=== PATIENT | female | born 1995 | race Caucasian/White ===

== ENCOUNTER 2020-06-17 16:44 | Outpatient (CLI) | payer OTHER ==
[2020-06-17 18:20] LABS: #Eosinphils 0.1 10x3/uL (0.0-0.5); #Monocytes 1.4 10x3/uL (0.0-1.1); #Neutrophils 8.6 10x3/uL (1.5-8.4); %Basophils 0.3 % (0.0-2.0); %Eosinophils 0.9 % (0.0-6.0); %Monocytes 9.8 % (0.0-10.0); %Neutrophils 60.6 % (40.0-75.0); Hemoglobin 15.4 g/dL (12.0-16.0); Mean Corpuscular HGB CONC 33.5 G/DL (32.0-36.0); Mean Corpuscular Volume 92.6 fl (80.0-100.0); Mean Platelet Volume 9.8 fl (7.4-10.4); Platelet Count 380 10x3/uL (130-400); RBC Distribution Width 12.4 % (11.5-14.5); Red Blood Cell (RBC) Count 4.97 10x6/uL (3.90-5.20); White Blood Cell (WBC) Count 14.2 10x3/uL (4.5-11.0)
[2020-06-17 18:36] LABS: ALT (SGPT) 26 U/L (8-55); AST (SGOT) 19 U/L (5-34); Albumin 4.6 g/dL (3.5-5.0); Alkaline Phosphatase 56 U/L (40-110); Anion Gap 16 mmol/L (10-20); BUN (Urea Nitrogen) 10 mg/dL (7.0-18.7); Bilirubin, Total 0.3 mg/dL (0.2-1.2); Calc. Creatinine Clearance 0 mL/min (70-130); Calcium 9.3 mg/dL (7.8-10.44); Carbon Dioxide 26 mmol/L (22-29); Chloride 104 mmol/L (98-107); Estimated GFR-MDRD 84; Glucose 82 mg/dL (70-105); Potassium 4.1 mmol/L (3.5-5.1); Protein, Total 7.6 g/dL (6.0-8.3); Sodium 142 mmol/L (136-145)
[2020-06-18 12:00] LABS: SARS-CoV-2 MS2 Positive; SARS-CoV-2 N Gene Negative; SARS-CoV-2 S Gene Negative; SARS-CoV-2 by NAA Not Detected (NotDetected); SARS-CoV-2 orf1ab Negative
== END 2020-06-17 16:45 | disposition home or self-care (01) ==
LOC: LABBT 16:44
PROVIDERS: ATTEND Surgery
DX: Z01.812 Encounter for preprocedural laboratory examination (principal); Z20.828 Contact with and (suspected) exposure to other viral communicable diseases; K44.9 Diaphragmatic hernia without obstruction or gangrene; K21.9 Gastro-esophageal reflux disease without esophagitis
CPT/HCPCS: 80053; 85025; 87635; U0003

== ENCOUNTER 2020-06-23 07:16 | Observation (INO) | payer OTHER ==
[2020-06-22 10:24] VITALS: BMI 25.3
[2020-06-23] MEDS ORDERED: Famotidine/PF 20 mg/2ml Vial ONE (08:08)
[2020-06-23] MEDS ORDERED: Midazolam HCl 2 mg/2 ml Vial ONE ×2 (08:09→09:10)
[2020-06-23] MEDS ORDERED: Lidocaine 1% PF 5 ML VIAL ONE (08:48)
[2020-06-23] MEDS ORDERED: Rocuronium Bromide 10 MG/ML (10ML VIAL) ONE (08:48)
[2020-06-23] MEDS ORDERED: PROPOFOL 200 MG/20 ML VIAL ONE (08:48)
[2020-06-23] MEDS ORDERED: Ondansetron PF 4 MG/2 ML Vial ONE (08:48)
[2020-06-23] MEDS ORDERED: Ketorolac Tromethamine 30 MG/ML VIAL ONE (08:48)
[2020-06-23] MEDS ORDERED: Naloxone HCl 0.4 mg/ml Vial ONE (08:48)
[2020-06-23] MEDS ORDERED: Lidocaine 1% w/Epinephrine 1:100K 20 ML VIAL ONE (09:01)
[2020-06-23] MEDS ORDERED: Bupivacaine 0.25% HCL 30 ML VIAL ONE (09:01)
[2020-06-23] MEDS ORDERED: Ketamine 50 MG/ML (10ML VIAL) ONE (09:11)
[2020-06-23] MEDS ORDERED: Propofol 1,000 MG/100 ML VIAL IV ONE (09:11)
[2020-06-23] MEDS ORDERED: Promethazine HCl 25 MG/ML VIAL SLOW IVP PRN (10:34)
[2020-06-23] MEDS ORDERED: Promethazine HCl 25 MG/ML VIAL IM PRN ×3 (10:34→12:00)
[2020-06-23] MEDS ORDERED: Ondansetron HCl/PF 4 MG/2 ML Vial IVP PRN (10:34)
[2020-06-23] MEDS ORDERED: diphenhydrAMINE 50 MG/ML VIAL IVP PRN (11:07)
[2020-06-23] MEDS ORDERED: hydrALAZINE 20 MG/ML VIAL SLOW IVP PRN (11:07)
[2020-06-23] MEDS ORDERED: Ondansetron PF 4 MG/2 ML Vial IVP PRN ×2 (11:07→12:00)
[2020-06-23] MEDS ORDERED: Dextrose 50% Abboject 50 ML SYRINGE SLOW IVP PRN (11:07)
[2020-06-23] MEDS ORDERED: Dextrose 5% in Water 1,000 ML IV PRN (11:07)
[2020-06-23] MEDS ORDERED: Hydrocodone-Acetamin 15 ML UDCUP PO PRN (11:07)
[2020-06-23] MEDS ORDERED: Sodium Chloride 0.9% (PF) 10 ML VIAL FS PRN (11:30)
[2020-06-23] MEDS ORDERED: Fentanyl 100 MCG/2 ML VIAL ONE (11:39)
[2020-06-23] MEDS ORDERED: Lorazepam 2 MG/ML VIAL ONE ×2 (11:57→16:01)
[2020-06-23] MEDS ORDERED: diphenhydrAMINE 50 MG/ML VIAL IM/IV PRN (12:00)
[2020-06-23] MEDS ORDERED: Zolpidem Tartrate 5 MG TAB PO PRN (12:00)
[2020-06-23] MEDS ORDERED: Naloxone HCl 0.4 mg/ml Vial IV PRN (12:00)
[2020-06-23] MEDS ORDERED: fentaNYL Citrate/PF 2,000 MCG in Sodium Chloride 0.9% 60 ML IV PRN (12:00)
[2020-06-23] MEDS ORDERED: diphenhydrAMINE 25 MG CAP PO PRN (12:00)
[2020-06-23] MEDS ORDERED: Meperidine HCl/PF 25 MG/ML VIAL ONE (12:03)
--- NOTE | 2020-06-23 12:40 | OP ---
DATE OF PROCEDURE: 06/23/2020 PREOPERATIVE DIAGNOSIS: Hiatal hernia with reflux. PROCEDURES PERFORMED: Laparoscopic hiatal hernia repair with Porsche fundoplication and esophagogastroscopy. INDICATIONS: A 25-year-old female who has been having severe gastroesophageal reflux. EGD showed esophagitis and a hiatal hernia. FINDINGS: Moderate-sized hiatal hernia. DESCRIPTION OF PROCEDURE: After informed consent was obtained, the patient was taken to the operating room and given general endotracheal anesthesia, placed in supine position. Abdomen was prepped and draped in usual fashion. Local anesthesia was infiltrated subcutaneously and deep. A 5-mm incision was performed approximately 8 inches below the xiphoid slight to the left. Veress needle inserted. Drop test performed. Pneumoperitoneum was created to a volume of 2 L of carbon dioxide. Utilizing a bladeless 5-mm trocar and 0-degree laparoscope, direct visual entry into the abdominal cavity was performed. Pneumoperitoneum was created to a pressure of 15 mmHg. The patient placed in steep reverse Trendelenburg position. Flores liver retractor inserted. Left lobe of the liver retracted superiorly. A 5 mm port was placed just to the left of the falciform, an 8 mm port placed in left subcostal, and another 5-mm port placed in left lateral. The stomach was retracted inferiorly. The gastrophrenic ligament divided utilizing the LigaSure. The peritoneum opened circumferentially with the LigaSure. Then, the short gastrics were taken down utilizing the LigaSure, left crura defined with the LigaSure. A subesophageal window was created and retraction achieved utilizing a Sterling drain. This allowed further dissection around the hiatus to fully reduce the hiatal hernia as well as esophagus. Then, a 40-Beninese bougie was inserted and directed into the body of stomach. A posterior crural plication was performed utilizing 0 Ethibond with the Sew-Right and Ti-KNOT device. Then, circumferentially the hiatal opening was closed onto the esophagus with interrupted 2-0 silk sutures tied intracorporeally. Then, the fundus was grasped underneath the esophagus, brought to the right side of the esophagus and a fundoplication was performed over the bougie. This was performed utilizing interrupted 2-0 silk sutures tied intracorporeally. Hemostasis was assured. Intraoperative endoscopy was performed. The video endoscope was inserted under direct vision, advanced into the stomach. Stomach insufflated with air maximally. There was no evidence of air leak. The scope was retroflexed. The scope inspected. There was no torsion, no paraesophageal component. The stomach decompressed. Scope removed. The trocars and retractors removed. The skin closed with interrupted 4-0 Rapide. Dermabond applied. The patient tolerated the procedure well and transferred to Recovery in good condition. Sponge and needle count verified correct x2. Job ID: [id number]
[2020-06-23] MEDS ORDERED: Lorazepam 2 MG/ML VIAL SLOW IVP PRN ×2 (15:09→15:44)
[2020-06-23] MEDS ORDERED: levETIRAcetam In NaCl (Iso-Os) 1,000 MG in Premix Bag 1 BAG IVPB SCH (15:15)
[2020-06-23 15:31] LABS: #Lymphocytes 0.8 thou/uL (1.20-3.40); #Monocytes 0.2 thou/uL (0.11-0.59); #Neutrophils 14.2 thou/uL (1.40-6.50); %Eosinophils 0.2 % (0.0-10.0); %Lymphocytes 5.3 % (21.0-51.0); %Monocytes 1.3 % (0.0-10.0); %Neutrophils 93.3 % (42.0-75.0); Hemoglobin 14.6 g/dL (12.0-16.0); Mean Corpuscular HGB CONC 35.2 g/dL (32.0-36.0); Mean Corpuscular Hemoglobin 32.6 pg (27.0-31.0); Mean Corpuscular Volume 92.6 fL (78.0-98.0); Mean Platelet Volume 6.9 fL (7.4-10.4); Platelet Count 291 thou/uL (130-400); RBC Distribution Width 11.3 % (11.5-14.5); Red Blood Cell (RBC) Count 4.48 mill/uL (4.20-5.40); White Blood Cell (WBC) Count 15.3 thou/uL (4.8-10.8)
[2020-06-23 15:48] LABS: Lactic Acid 1.3 mmol/L (0.5-2.2)
[2020-06-23 15:53] LABS: ALT (SGPT) 43 U/L (8-55); AST (SGOT) 37 U/L (5-34); Albumin 3.7 g/dL (3.5-5.0); Alkaline Phosphatase 52 U/L (40-110); Anion Gap 13 mmol/L (10-20); BUN (Urea Nitrogen) 9 mg/dL (7.0-18.7); Bilirubin, Total 0.3 mg/dL (0.2-1.2); Calc. Creatinine Clearance 139 mL/min (70-130); Calcium 8.8 mg/dL (7.8-10.44); Carbon Dioxide 20 mmol/L (22-29); Chloride 107 mmol/L (98-107); Estimated GFR-MDRD Greater than 90; Globulin 2.8 g/dL (2.4-3.5); Glucose 112 mg/dL (70-105); Potassium 4.2 mmol/L (3.5-5.1); Protein, Total 6.5 g/dL (6.0-8.3); Sodium 136 mmol/L (136-145)
--- NOTE | 2020-06-23 16:19 | CT ---
Head CT without contrast 06/23/2020: COMPARISON: 02/17/2013 HISTORY: Breakthrough seizure TECHNIQUE: Axial CT imaging at 5 mm intervals from vertex through skull base without contrast FINDINGS: The visualized paranasal sinuses and mastoid air cells appear well-aerated. No displaced ca lvarial fracture. No intracranial hemorrhage, midline shift, or mass effect. If there is clinical concern for a seizure focus, a follow-up brain MRI is recommended. IMPRESSION: No intracranial hemorrhage or displaced calvarial fracture.
[2020-06-23] MEDS: Ketorolac Tromethamine 30 MG/ML VIAL IVP SCH ×3 (16:43→23:27)
[2020-06-23] MEDS: D5 1/2 NS w/20 mEq KCL 1,000 ML IV SCH ×2 (17:08→20:36)
[2020-06-23] MEDS: CEFAZOLIN 2 GM in Premix Bag 1 BAG IVPB SCH ×2 (17:37→23:28)
[2020-06-23 19:48] LABS: Bilirubin Negative (Negative); Blood, Urine Negative (Negative); Glucose, Urine (Dipstick) Negative (Negative); Ketone, Urine Negative (Negative); Leukocyte Negative (Negative); Nitrite Negative (Negative); Protein, Urine (Dipstick) Negative (Neg-Trace); Urobilinogen 0.2 mg/dL (Less than 2); pH, Urine 5.5 (5.0-9.0)
[2020-06-23 19:49] LABS: Clarity Clear (Clear)
[2020-06-23 19:54] LABS: Bacteria/HPF 1+ HPF (None Seen); RBC/HPF None Seen HPF (0-3); Squamous Epithelial 0-3 HPF (0-3); WBC/HPF 0-3 HPF (0-3)
[2020-06-23 19:56] LABS: Urine Culture Reflex Yes Yes
[2020-06-23 19:59] LABS: Amphetamine Not Detected (NotDetected); Barbiturates Screen Not Detected (NotDetected); Benzodiazepine Screen Detected (NotDetected); Cocaine Metabolite Screen Not Detected (NotDetected); Medtox Control Line Valid? VALID (VALID); Medtox Reader # READER 1; Methadone Not Detected (NotDetected); Methamphetamine Not Detected (NotDetected); Opiate Screen Not Detected (NotDetected); Oxycodone Screen Not Detected (NotDetected); Phencyclidine (PCP) Not Detected (NotDetected); THC/Cannabinoid Screen Not Detected (NotDetected); Tricyclic Screen Not Detected (NotDetected)
--- NOTE | 2020-06-23 20:11 | PDOC.HHP ---
Hospitalist HPI - History of Present Illness Consult for seizures History of Present Illness: Ms. Lorenzana is a 25-year-old female with a past medical history of complex regional pain syndrome, hiatal hernia, GERD, seizure disorder who underwent a hiatal hernia repair with Porsche fundoplication on 06/23/[address] Gonsalez, and had 2 episodes of seizures while in the postanesthesia care unit. Nursing reports that seizures were generalized and tonic-clonic, lasting minutes. Patient received 2 mg of lorazepam. Patient mildly postictal afterwards but otherwise in no acute distress. Patient reports that she has a history of seizures with her last one occurring in March. She is not on any antiseizure medication, and does not follow with a neurologist. Patient denies any numbness, weakness or paresthesias. She denies any dizziness, lightheadedness, changes in vision. She denies chest pain, shortness of breath, palpitations. Patient does note that over the past year she has had episodes of chest pain associated with palpitations. She has been evaluated at [facility] [place] for this and has even undergone a heart catheterization. Patient and family report that the heart cath was normal, the patient still reports episodes of chest pain with palpitations. She notes that sometimes during these events her apple watch will notify her of an elevated heart rate. She denies having any of these events since coming to the hospital. Hospitalist ROS - Review of Systems Constitutional: denies: fever, chills, sweats, weakness, malaise, other Eyes: denies: pain, vision change, conjunctivae inflammation, eyelid inflammation, redness, other ENT: denies: ear pain, ear discharge, nose pain, nose discharge, nose congestion, mouth pain, mouth swelling, throat pain, throat swelling, other Respiratory: denies: cough, dry, shortness of breath, hemoptysis, SOB with excertion, pleuritic pain, sputum, wheezing, other Cardiovascular: reports: palpitations. denies: chest pain, orthopnea, paroxysmal noc. dyspnea, edema, light headedness, other Gastrointestinal: denies: nausea, vomiting, abdominal pain, diarrhea, constipation, melena, hematochezia, other Genitourinary: denies: dysuria, frequency, incontinence, hematuria, retention, other Musculoskeletal: denies: neck pain, shoulder pain, arm pain, back pain, hand pain, leg pain, foot pain, other Skin: denies: rash, lesions, abelino, bruising, other Neurological: reports: seizures. denies: weakness, numbness, incoordination, change in speech, confusion, other - Medication Medications: Patient takes no home medication. She has no known allergies Hospitalist History - Past Medical History Other Medical History: Past medical history Hiatal hernia Seizures GERD Chest pain and palpitations - Past Surgical History Other Surgical History: Past surgical history includes Heart catheterization EGD Porsche fundoplication - Family History Other Family History: Family history of malignant hyperthermia in patient's father. Patient has had no known adverse reactions to anesthesia. - Social History Smoking Status: Current some day smoker Alcohol: reports: Rare Drugs: reports: none Living Situation: Alone Activity level: independent ambulation - Exam General Appearance: NAD, awake alert Eye: PERRL, anicteric sclera ENT: normocephalic atraumatic, no oropharyngeal lesions, moist mucosa Neck: supple, symmetric, no JVD, no thyromegaly, no lymphadenopathy, no carotid bruit Heart: RRR, no murmur, no gallops, no rubs, normal peripheral pulses Respiratory: CTAB, no wheezes, no rales, no ronchi, normal chest expansion, no tachypnea, normal percussion Gastrointestinal: soft, non-tender, non-distended, normal bowel sounds, no palp able masses, no hepatomegaly, no splenomegaly, no bruit Extremities: no cyanosis, no clubbing, no edema Skin: normal turgor, no lesions, no rashes Neurological: cranial nerve grossly intact, normal sensation to touch, no weak ness, no focal deficits, no new deficit Musculoskeletal: normal tone, normal strength, no muscle wasting Psychiatric: normal affect, normal behavior, A&O x 3 Hospitalist Results - Labs Result Diagrams: 06/24/20 05:08 06/24/20 05:08 Lab results: WBC 15.3 thou/uL (4.8-10.8) H 06/23/20 15:24 Hgb 14.6 g/dL (12.0-16.0) 06/23/20 15:24 Hct 41.5 % (36.0-47.0) 06/23/20 15:24 MCV 92.6 fL (78.0-98.0) 06/23/20 15:24 Plt Count 291 thou/uL (130-400) 06/23/20 15:24 Neutrophils % 93.3 % (42.0-75.0) H 06/23/20 15:24 Sodium 136 mmol/L (136-145) 06/23/20 15:24 Potassium 4.2 mmol/L (3.5-5.1) 06/23/20 15:24 Chloride 107 mmol/L (98-107) 06/23/20 15:24 Carbon Dioxide 20 mmol/L (22-29) L 06/23/20 15:24 BUN 9 mg/dL (7.0-18.7) 06/23/20 15:24 Creatinine 0.72 mg/dL (0.6-1.1) 06/23/20 15:24 Glucose 112 mg/dL (70-105) H 06/23/20 15:24 Lactic Acid 1.3 mmol/L (0.5-2.2) 06/23/20 15:24 Calcium 8.8 mg/dL (7.8-10.44) 06/23/20 15:24 Total Bilirubin 0.3 mg/dL (0.2-1.2) 06/23/20 15:24 AST 37 U/L (5-34) H 06/23/20 15:24 ALT 43 U/L (8-55) 06/23/20 15:24 Alkaline Phosphatase 52 U/L (40-110) 06/23/20 15:24 Serum Total Protein 6.5 g/dL (6.0-8.3) 06/23/20 15:24 Albumin 3.7 g/dL (3.5-5.0) 06/23/20 15:24 Urine Ketones Negative mg/dL (Negative) 06/23/20 19:30 Urine Blood Negative (Negative) 06/23/20 19:30 Urine Nitrite Negative (Negative) 06/23/20 19:30 Ur Leukocyte Esterase Negative (Negative) 06/23/20 19:30 Urine RBC None Seen HPF (0-3) 06/23/20 19:30 Urine WBC 0-3 HPF (0-3) 06/23/20 19:30 Ur Squamous Epith Cells 0-3 HPF (0-3) 06/23/20 19:30 Urine Bacteria 1+ HPF (None Seen) A 06/23/20 19:30 Hospitalist H&P A/P - Plan Plan: Seizures 25-year-old female with past medical history of complex regional pain syndrome and seizure disorder who was admitted to the hospital for a hiatal hernia repair and Porsche fundoplication who had 2 seizures in the post anesthesia care unit. Seizures were treated with Ativan 2 mg, and [address] brain showed no acute abnormalities. Patient is now on medical floor neurologically intact, a and O x4. She reports her last seizure was in March, and that she is not on any antiepileptic medication. Lactic acid 1.3. Plan for MRI and EEG in the morning. We will consult neurology. Plan Ativan as needed for seizures Keppra EEG MRI brain Neurology consult Urine tox screen Status post hiatal hernia repair and Porsche fundoplication 25-year-old female who underwent hiatal hernia repair and Porsche fundoplication due to chronic GERD. Patient tolerated procedure well with no complications noted in the operative note. Patient with no respiratory complaints, no lower extremity swelling. Patient endorses passing flatus, has not yet had bowel movement. Incentive spirometry encouraged, ambulation encouraged. Plan Incentive spirometry encouraged Ambulation encouraged Postop care per surgical team Chest pain and palpitations Patient reports that over the past year she has had several episodes of chest pain associated with palpitations and shortness of breath. Patient has been evaluated at [facility] for this, and even underwent a heart cathete rization which was completely normal. Patient does tell me that she occasionally feels fluttering in her chest during these episodes and notes that her apple watch has gone off several times when she gets these chest pain episodes. Question if episodes could be secondary to hiatal hernia, and advised patient to note if there was any improvement in her symptoms postoperatively. Patient has never had an event or loop recorder placed to evaluate for these episodes. Patient denies having any of these episodes during stay. Recommended outpatient follow-up with cardiology. Plan Outpatient follow-up with cardiology DVT prophylaxis per surgical team Full code
[2020-06-24] MEDS: D5 1/2 NS w/20 mEq KCL 1,000 ML IV SCH ×3 (02:57→22:29)
[2020-06-24] MEDS: Ketorolac Tromethamine 30 MG/ML VIAL IVP SCH ×4 (05:42→23:07)
[2020-06-24 05:57] LABS: #Lymphocytes 1.8 thou/uL (1.20-3.40); #Monocytes 1.2 thou/uL (0.11-0.59); %Basophils 0.1 % (0.0-1.0); %Monocytes 7.6 % (0.0-10.0); %Neutrophils 81.3 % (42.0-75.0); Hemoglobin 13.5 g/dL (12.0-16.0); Mean Corpuscular Hemoglobin 32.2 pg (27.0-31.0); Mean Corpuscular Volume 94.8 fL (78.0-98.0); Mean Platelet Volume 7.5 fL (7.4-10.4); Platelet Count 285 thou/uL (130-400); RBC Distribution Width 11.2 % (11.5-14.5); Red Blood Cell (RBC) Count 4.21 mill/uL (4.20-5.40)
[2020-06-24 06:16] LABS: Anion Gap 12 mmol/L (10-20); BUN (Urea Nitrogen) 5 mg/dL (7.0-18.7); Calc. Creatinine Clearance 143 mL/min (70-130); Calcium 8.2 mg/dL (7.8-10.44); Carbon Dioxide 22 mmol/L (22-29); Chloride 106 mmol/L (98-107); Estimated GFR-MDRD Greater than 90; Glucose 234 mg/dL (70-105); Potassium 4.6 mmol/L (3.5-5.1); Sodium 135 mmol/L (136-145)
--- NOTE | 2020-06-24 07:14 | CON ---
NEUROLOGY CONSULTATION DATE OF CONSULTATION: 06/23/2020 REASON FOR CONSULTATION: Breakthrough seizure. HISTORY OF PRESENT ILLNESS: Ms. Breanne Lorenzana is a 25-year-old female with history significant for seizure-like episodes, was seen in the PACU post surgery nora fundoplication . Patient has gastroesophageal reflux disease. An EGD showed esophagitis and hiatal hernia. She was here for laparoscopic procedure, and after the surgery, she had 2 seizures witnessed by the nursing staff. The first one occurred after she came out of the PACU which was characterized by staring episode followed by shaking. She was given Ativan and then she slept for a couple of hours and then this was followed by another one, which characterized by whole-body shaking, and she was confused for some time and received Ativan. The patient is currently alert and oriented x4 at the time of examination. Per patient, she started having seizures since the last 2 years. She has been seen at [facility], but denied getting any EEG done, and she was never treated for the seizures. The patient denies any family history of seizures as a child. She denies history of head injury or loss of consciousness. The patient denies focal numbness, focal paresthesias, nausea, vomiting, headache, chest pain, abdominal pain, recent illness, recent exposure to COVID. The patient has never took any seizure medicines for these episodes and has not been followed by Neurology. REVIEW OF SYSTEMS: Constitutional: denies: fever, chills, sweats, weakness, malaise, other Eyes: denies: pain, vision change, conjunctivae inflammation, eyelid inflammation, redness, other ENT: denies: ear pain, ear discharge, nose pain, nose discharge, nose congestion, mouth pain, mouth swelling, throat pain, throat swelling, other Respiratory: denies: cough, dry, shortness of breath, hemoptysis, SOB with excertion, pleuritic pain, sputum, wheezing, other Cardiovascular: reports: palpitations. denies: chest pain, orthopnea, paroxysmal noc. dyspnea, edema, light headedness, other Gastrointestinal: denies: nausea, vomiting, abdominal pain, diarrhea, constipation, melena, hematochezia, other Genitourinary: denies: dysuria, frequency, incontinence, hematuria, retention, other Musculoskeletal: denies: neck pain, shoulder pain, arm pain, back pain, hand pain, leg pain, foot pain, other Skin: denies: rash, lesions, abelino, bruising, other Neurological: reports: seizures. denies: weakness, numbness, incoordination, change in speech, confusion, other PAST MEDICAL HISTORY: Seizure, gastroesophageal reflux disease, hiatal hernia, and esophagitis, complex regional pain syndrome PAST SURGICAL HISTORY: Heart catheterization EGD Porsche fundoplication ALLERGIES: NO KNOWN DRUG ALLERGIES. SOCIAL HISTORY: Smoking Status: Current some day smoker Alcohol: reports: Rare Drugs: reports: none Living Situation: Alone Activity level: independent ambulation MEDICATIONS: Patient takes no home medication. FAMILY HISTORY: Family history of malignant hyperthermia in patient's father. Patient has had no known adverse reactions to anesthesia. VITAL SIGNS: Blood pressure 110/60, pulse 80, respiratory rate 18. PHYSICAL EXAMINATION: General Appearance: NAD, awake alert Eye: PERRL, anicteric sclera ENT: normocephalic atraumatic, no oropharyngeal lesions, moist mucosa Neck: supple, symmetric, no JVD, no thyromegaly, no lymphadenopathy, no carotid bruit Heart: RRR, no murmur, no gallops, no rubs, normal peripheral pulses Respiratory: CTAB, no wheezes, no rales, no ronchi, normal chest expansion, no tachypnea, normal percussion Gastrointestinal: soft, non-tender, non-distended, normal bowel sounds, no palpable masses, no hepatomegaly, no splenomegaly, no bruit Extremities: no cyanosis, no clubbing, no edema Skin: normal turgor, no lesions, no rashes Neurological: Mental status, the patient is alert and oriented to person, place, and time. Speech is clear. Recent and remote memory intact. Fund of knowledge is appropriate. Cranial nerves 2 through 12 intact. Motor, muscle tone and bulk are normal. Strength 5/5 bilaterally. Sensory intact. Cerebellar, finger-nose testing intact. Gait deferred due to the patient's safety reasons. DATA REVIEWED: Head CT reviewed, which was negative for acute intracranial pathology. Lab results: WBC 15.3 thou/uL (4.8-10.8) H 06/23/20 15:24 Hgb 14.6 g/dL (12.0-16.0) 06/23/20 15:24 Hct 41.5 % (36.0-47.0) 06/23/20 15:24 MCV 92.6 fL (78.0-98.0) 06/23/20 15:24 Plt Count 291 thou/uL (130-400) 06/23/20 15:24 Neutrophils % 93.3 % (42.0-75.0) H 06/23/20 15:24 Sodium 136 mmol/L (136-145) 06/23/20 15:24 Potassium 4.2 mmol/L (3.5-5.1) 06/23/20 15:24 Chloride 107 mmol/L (98-107) 06/23/20 15:24 Carbon Dioxide 20 mmol/L (22-29) L 06/23/20 15:24 BUN 9 mg/dL (7.0-18.7) 06/23/20 15:24 Creatinine 0.72 mg/dL (0.6-1.1) 06/23/20 15:24 Glucose 112 mg/dL (70-105) H 06/23/20 15:24 Lactic Acid 1.3 mmol/L (0.5-2.2) 06/23/20 15:24 Calcium 8.8 mg/dL (7.8-10.44) 06/23/20 15:24 Total Bilirubin 0.3 mg/dL (0.2-1.2) 06/23/20 15:24 AST 37 U/L (5-34) H 06/23/20 15:24 ALT 43 U/L (8-55) 06/23/20 15:24 Alkaline Phosphatase 52 U/L (40-110) 06/23/20 15:24 Serum Total Protein 6.5 g/dL (6.0-8.3) 06/23/20 15:24 Albumin 3.7 g/dL (3.5-5.0) 06/23/20 15:24 Urine Ketones Negative mg/dL (Negative) 06/23/20 19:30 Urine Blood Negative (Negative) 06/23/20 19:30 Urine Nitrite Negative (Negative) 06/23/20 19:30 Ur Leukocyte Esterase Negative (Negative) 06/23/20 19:30 Urine RBC None Seen HPF (0-3) 06/23/20 19:30 Urine WBC 0-3 HPF (0-3) 11/04/20 19:30 Ur Squamous Epith Cells 0-3 HPF (0-3) 06/23/20 19:30 Urine Bacteria 1+ HPF (None Seen) A 06/23/20 19:30 ASSESSMENT AND PLAN: Ms. Breanne Lorenzana is a 25-year-old female with status post laparoscopic surgery for hiatal hernia, was seen by Neurology in PCU for two breakthrough seizures. Per patient, she has been having seizures since last year but never had a formal workup with EEG and MRI brain. We will schedule her for an EEG and MRI of the brain to evaluate for seizure focus. Load with Keppra 1 g IV now and then start her on 500 p.o. b.i.d., Ativan 2 mg IV for seizure greater than 2 minutes. Observe seizure precautions. Neuro checks every 4 hours. Continue home medications. Continue medical management per primary team. We will continue to follow. Thank you for the consult. Job ID: [id number] MTDD
--- NOTE | 2020-06-24 08:57 | PRG ---
DATE OF SERVICE: 06/24/2020 SUBJECTIVE: The patient experienced grand mal seizures in the recovery room yesterday. After talked to mom, apparently she has had seizures in the past. Medicine has been involved with her. They did a head CT that did not show any evidence of intracranial lesions or bleeds. She did not really have any significant nausea at this time. She has been able to drink apple juice. OBJECTIVE: VITAL SIGNS: Her temperature is 98.1, pulse 88, and blood pressure 107/69. GENERAL: She looks okay. She is awake and alert. HEENT: Unremarkable. LUNGS: Clear. ABDOMEN: Soft, nondistended, and nontender. Incisions healing well. LABORATORY DATA: White count 16, hemoglobin and hematocrit of 13 and 39, platelet count 285. Her electrolytes are fine, elevated glucose at 230. ASSESSMENT: Grand mal seizures. PLAN: Further evaluation by medical service. We will try and get a Gastrografin swallow today. Job ID: [id number]
--- NOTE | 2020-06-24 09:03 | RAD ---
Esophagram HISTORY: Gastroesophageal surgery. FINDINGS: Small volume Gastrografin esophagram was performed. Contrast immediately passed through the distal esophagus and GE junction. No evidence of obstruction or leak.
[2020-06-24] MEDS: Enoxaparin Sodium 40 MG/0.4 ML SYRINGE SC SCH (09:12)
[2020-06-24] MEDS: Pantoprazole 40 MG VIAL IVP SCH (09:13)
[2020-06-24] MEDS ORDERED: GASTROGRAFIN 30 ML BOT ONE (13:49)
--- NOTE | 2020-06-24 15:14 | PDOC.EEG ---
Neurology EEG Report - Report Report: This EEG was performed using 24 channel fitmobtek video digital EEG machine with 24 disc electrodes. This was an extended 2 hours 4 minutes of EEG recording. Digital analysis of the EEG was done for Aj and seizure detection which revealed no abnormalities. Background: The posterior background rhythm is 9-10 Hz. Bioccipital symmetric driving response seen with photic stimulation. Hyperventilation: Not performed. Sleep: Drowsiness and sleep are observed EEG diagnosis: Normal awake, drowsy and sleep EEG.
--- NOTE | 2020-06-24 15:28 | PDOC.HOSPP ---
- Subjective Encounter Date: 06/24/20 Encounter Time: 15:25 Subjective: f/u seizures post-op after Porsche fundoplication. Received Keppra/Ativan initially and no recurrent seizures per family report. EEG performed but results pending. - Objective Vital Signs & Weight: Vital Signs (12 hours) Temp Pulse Resp BP Pulse Ox 06/24/20 07:58 98.5 F 80 18 143/73 H 98 Weight Weight 162 lb I&O: 06/23/20 06/24/20 06/25/20 06:59 06:59 06:59 Intake Total 2124 Balance 2124 Result Diagrams: 06/24/20 05:08 06/24/20 05:08 Additional Labs: Microbiology 06/23/20 19:55 Urine clean catch Urine Culture - Preliminary NO GROWTH AT 12 HOURS Laboratory Tests 06/23/20 06/23/20 06/23/20 15:24 15:24 19:30 WBC 15.3 H TSH 3rd Generation Prolactin 31.96 H U Benzodiazepines Scrn Detected H 06/24/20 05:08 WBC TSH 3rd Generation 0.6227 Prolactin U Benzodiazepines Scrn Radiology Reviewed by me: Yes (CT brain - no acute process) Hospitalist ROS - Medication Medications: Active Medications Generic Name Dose Route Start Last Admin Trade Name Freq PRN Reason Stop Dose Admin Enoxaparin Sodium 40 mg 06/24/20 09:00 06/24/20 09:12 Enoxaparin Sodium 40 Mg/0.4 Ml Syringe SC 40 mg 0900 KALLI Administration Potassium Chloride/Dextrose/Sod Cl 1,000 mls @ 125 mls/hr 06/23/20 11:15 06/24/20 12:45 D5 1/2 Ns W/20 Meq Kcl IV 1,000 mls .Q8H KALLI Administration Levetiracetam 500 mg/ Device 100 mls @ 200 mls/hr 06/23/20 21:00 06/24/20 09:13 IVPB 100 mls BID KALLI Administration Ketorolac Tromethamine 30 mg 06/23/20 12:00 06/24/20 12:43 Ketorolac Tromethamine 30 Mg/Ml Vial IVP 06/28/20 12:01 30 mg Q6HR KALLI Administration Pantoprazole Sodium 40 mg 06/24/20 09:00 06/24/20 09:13 Pantoprazole 40 Mg Vial IVP 40 mg DAILY KALLI Administration - Exam General Appearance: NAD, awake alert Eye: PERRL, anicteric sclera ENT: normocephalic atraumatic, no oropharyngeal lesions Neck: supple, symmetric, no JVD, no thyromegaly, no lymphadenopathy Heart: RRR, no murmur, no gallops, no rubs, normal peripheral pulses Respiratory: CTAB, no wheezes, no rales, no ronchi, normal chest expansion Gastrointestinal: soft, non-tender, non-distended, normal bowel sounds, no palpable masses Extremities: no cyanosis, no clubbing, no edema Skin: normal turgor, no lesions Neurological: cranial nerve grossly intact, no new deficit Musculoskeletal: normal tone, normal strength, no muscle wasting Psychiatric: normal affect, A&O x 3 Hosp A/P (1) Seizures Code(s): R56.9 - UNSPECIFIED CONVULSIONS Status: Acute Plan: Continue Keppra 500mg BID, likely will continue on outpt basis (2) Hiatal hernia Code(s): K44.9 - DIAPHRAGMATIC HERNIA WITHOUT OBSTRUCTION OR GANGRENE Status: Acute (3) GERD (gastroesophageal reflux disease) Code(s): K21.9 - GASTRO-ESOPHAGEAL REFLUX DISEASE WITHOUT ESOPHAGITIS Status: Acute (4) Status post Porsche fundoplication Code(s): Z98.890 - OTHER SPECIFIED POSTPROCEDURAL STATES Status: Acute Plan: POD #1 - Plan plan discussed w/ family, out of bed/ambulate, DVT proph w/SCDs Stable currently Continue Keppra 500mg BID MRI brain pending EEG pending OOB/ambulate Likely home in 24h
--- NOTE | 2020-06-24 17:45 | MRI ---
INDICATIONS: Seizure. FINDINGS: Ventricles have normal size and position. There is no evidence of restricted diffusion. There is no m ass or edema. No white matter abnormality. The intracranial internal carotid arteries and cerebral arteries show expected flow voids. The parana piero sinuses appear clear. Mild mucosal edema in the right mastoid air cells. IMPRESSION: Unremarkable MRI of brain. POS: AGW
[2020-06-25] MEDS: D5 1/2 NS w/20 mEq KCL 1,000 ML IV SCH (04:09)
[2020-06-25] MEDS: Ketorolac Tromethamine 30 MG/ML VIAL IVP SCH (05:14)
[2020-06-25] MEDS: Pantoprazole 40 MG VIAL IVP SCH (08:45)
[2020-06-25] MEDS: Enoxaparin Sodium 40 MG/0.4 ML SYRINGE SC SCH (08:45)
[2020-06-25] MEDS ORDERED: Hydrocodone-Acetamin 15 ML UDCUP PO PRN (08:51)
[2020-06-25 12:41] VITALS: BP 109/73; TEMP 98.6
--- NOTE | 2020-06-25 13:42 | PDOC.NEUPN ---
- Subjective Encounter Date: 06/25/20 Subjective: Ms. Lorenzana had no seizures since admission after the initiation of Keppra. She is tolerating the medicines well without any side effects. MRI of the brain and EEG were negative. - Objective Vital Signs & Weight: Vital Signs (12 hours) Temp Pulse Resp BP Pulse Ox 06/25/20 11:24 98.6 F 88 18 109/73 96 06/25/20 07:55 98.8 F 83 18 101/66 96 06/25/20 03:23 98.7 F 83 19 101/67 95 Weight Weight 162 lb I&O: 06/24/20 06/25/20 06/26/20 06:59 06:59 06:59 Intake Total 2124 2175 640 Balance 2124 2175 640 Result Diagrams: 06/24/20 05:08 06/24/20 05:08 Radiology Reviewed by me: Yes EKG Reviewed by me: Yes ROS - Review of Systems Constitutional: denies: fever, chills, sweats, weakness, malaise, other Eyes: denies: pain, vision change, conjunctivae inflammation, eyelid inflammation, redness, other ENT: denies: ear pain, ear discharge, nose pain, nose discharge, nose congestion, mouth pain, mouth swelling, throat pain, throat swelling, other Respiratory: denies: cough, dry, shortness of breath, hemoptysis, SOB with excertion, pleuritic pain, sputum, wheezing, other Cardiovascular: denies: no pertinent history, AFIB, CAD, CHF, HTN, ME, Syncope, Hyperlipidemia, Mitral valve stenosis, Aortic stenosis, Valve insufficiency, Pulmonary hypertension, Other Gastrointestinal: denies: nausea, vomiting, abdominal pain, diarrhea, constipation, melena, hematochezia, other Musculoskeletal: denies: neck pain, shoulder pain, arm pain, back pain, hand pain, leg pain, foot pain, other Skin: denies: rash, lesions, abelino, bruising, other Neurological: denies: weakness, numbness, incoordination, change in speech, confusion, seizures, other All Systems: All other systems reviewed; all pertinent +/- noted in HPI/Subj - Exam General Appearance: NAD Eye: PERRL ENT: normocephalic atraumatic Neck: supple Respiratory: CTAB Cardiovascular: RRR Gastrointestinal: soft Extremities: no cyanosis Skin: normal turgor Neurological: CN's grossly intact, normal sensation to touch, no weakness, no focal deficits Musculoskeletal: normal tone, normal strength, no muscle wasting PSYCH: normal affect, normal behavior, A&O x 3 Results - Labs Result Diagrams: 06/24/20 05:08 06/24/20 05:08 Lab results: WBC 16.0 thou/uL (4.8-10.8) H 06/24/20 05:08 Hgb 13.5 g/dL (12.0-16.0) 06/24/20 05:08 Hct 39.9 % (36.0-47.0) 06/24/20 05:08 MCV 94.8 fL (78.0-98.0) 06/24/20 05:08 Plt Count 285 thou/uL (130-400) 06/24/20 05:08 Neutrophils % 81.3 % (42.0-75.0) H 06/24/20 05:08 Sodium 135 mmol/L (136-145) L 06/24/20 05:08 Potassium 4.6 mmol/L (3.5-5.1) 06/24/20 05:08 Chloride 106 mmol/L (98-107) 06/24/20 05:08 Carbon Dioxide 22 mmol/L (22-29) 06/24/20 05:08 BUN 5 mg/dL (7.0-18.7) L 06/24/20 05:08 Creatinine 0.70 mg/dL (0.6-1.1) 06/24/20 05:08 Glucose 234 mg/dL (70-105) H 06/24/20 05:08 Lactic Acid 1.3 mmol/L (0.5-2.2) 06/23/20 15:24 Calcium 8.2 mg/dL (7.8-10.44) 06/24/20 05:08 Total Bilirubin 0.3 mg/dL (0.2-1.2) 06/23/20 15:24 AST 37 U/L (5-34) H 06/23/20 15:24 ALT 43 U/L (8-55) 06/23/20 15:24 Alkaline Phosphatase 52 U/L (40-110) 06/23/20 15:24 Serum Total Protein 6.5 g/dL (6.0-8.3) 06/23/20 15:24 Albumin 3.7 g/dL (3.5-5.0) 06/23/20 15:24 Urine Ketones Negative mg/dL (Negative) 06/23/20 19:30 Urine Blood Negative (Negative) 06/23/20 19:30 Urine Nitrite Negative (Negative) 06/23/20 19:30 Ur Leukocyte Esterase Negative (Negative) 06/23/20 19:30 Urine RBC None Seen HPF (0-3) 06/23/20 19:30 Urine WBC 0-3 HPF (0-3) 06/23/20 19:30 Ur Squamous Epith Cells 0-3 HPF (0-3) 06/23/20 19:30 Urine Bacteria 1+ HPF (None Seen) A 06/23/20 19:30 - EKG Interpretation EKG: Normal sinus rhythm - Radiology Interpretation MRI - head Additional Comment: MRI of the brain negative for acute intracranial pathology. PN A/P (1) Seizures Code(s): R56.9 - UNSPECIFIED CONVULSIONS Status: Acute (2) GERD (gastroesophageal reflux disease) Code(s): K21.9 - GASTRO-ESOPHAGEAL REFLUX DISEASE WITHOUT ESOPHAGITIS Status: Acute (3) Hiatal hernia Code(s): K44.9 - DIAPHRAGMATIC HERNIA WITHOUT OBSTRUCTION OR GANGRENE Status: Acute (4) Status post Porsche fundoplication Code(s): Z98.890 - OTHER SPECIFIED POSTPROCEDURAL STATES Status: Acute - Plan Daily Plan: plan discussed w/ family, PT/OT, speech therapy, out of bed/ambulate Ms. Lorenzana is a 25-year-old female with history significant for gastroesophageal reflux disease s/p Porsche fundoplication consulted for breakthrough seizures x2 post surgery. She was loaded with Keppra and started on Keppra 500 mg twice daily. No further seizures since admission. She tolerated the Keppra well without any side effects. Continue Keppra 500 mg p.o. twice daily. MRI of the brain reviewed which was negative for acute intracranial pathology or evidence of seizure focus. EEG reviewed which was normal with no evidence of seizure activity or presence of interictal epileptiform discharges. Neurochecks every 4 hours. Observe seizure precautions. Ativan 2 mg IV for seizure greater than 2 minutes. Continue home medications. Patient should be discharged on Keppra 500 mg twice daily with a follow-up in the neurology clinic for further management of seizures and also complex regional pain syndrome. She was advised not to drive for 3 months according to [place] state law for the date of the last seizure Plan discussed in detail with the patient and the patient's mother and also with the primary attending Dr. Torres.
--- NOTE | 2020-06-28 06:46 | DIS ---
DATE OF ADMISSION: 06/23/2020 DATE OF DISCHARGE: 06/25/2020 DISCHARGE DIAGNOSES: Hiatal hernia with gastroesophageal reflux, postoperative seizures. PROCEDURES DURING ADMISSION: Laparoscopic hiatal hernia repair with Porsche fundoplication. CT scan of brain, upper gastrointestinal series, brain MRI, and electroencephalogram. HOSPITAL COURSE: The patient was admitted, taken to the operating room, where she underwent a repair of hiatal hernia and Porsche fundoplication. Postoperatively in the recovery room, she had grand mal seizures. Apparently, she had had some in the past but had never been worked up. Medicine was consulted. Neurology was consulted. A CT of the brain was done that was negative. A brain MRI was done that was negative. An EEG was done, which showed no seizure focus. She was treated with Keppra. When she was on that, she had no further seizure activity. A barium swallow showed free flow into the stomach, no obstruction. She is now discharged home in good condition, tolerating liquids well. She is discharged on Keppra, hydrocodone, and Zofran. She will follow up with me in 2 weeks. Job ID: [id number]
== END 2020-06-25 12:30 | disposition home or self-care (01) ==
LOC: SDC 07:16 → SURG A 11:07
PROVIDERS: ADMIT Surgery; ATTEND Surgery
PROC: 0DV44ZZ Restriction of Esophagogastric Junction, Percutaneous Endoscopic Approach (ICD-10-PCS; principal; 2020-06-23)
PROC: 0DJ08ZZ Inspection of Upper Intestinal Tract, Via Natural or Artificial Opening Endoscopic (ICD-10-PCS; 2020-06-23)
DX: K44.9 Diaphragmatic hernia without obstruction or gangrene (principal); K21.00 Gastro-esophageal reflux disease with esophagitis, without bleeding; F17.200 Nicotine dependence, unspecified, uncomplicated; G40.409 Other generalized epilepsy and epileptic syndromes, not intractable, without status epilepticus; G90.50 Complex regional pain syndrome I, unspecified; R07.9 Chest pain, unspecified; Z79.899 Other long term (current) drug therapy
CPT/HCPCS: 36415; 70450; 70551; 74240; 80048; 80053; 80306; 81001; 83605; 84146; 84443; 85025; 87086; 95712; 95819; 95957; 96365; 96366; 96372; 96375; 96376; C9113; G0378; J0690; J1650; J1885; J1953; J2060; J2175; J2250; J2310; J2405; J2704; J3010; J3480; J3490; Q9963; S0020; S0028

== ENCOUNTER 2021-02-18 09:12 | Outpatient (CLI) | payer OTHER ==
[2021-02-18 19:44] LABS: SARS-CoV-2 PCR by NAA Not Detected (NotDetected)
== END 2021-02-18 09:13 | disposition home or self-care (01) ==
LOC: LABBT 09:12
PROVIDERS: ATTEND Internal Medicine Gastroenterology
DX: Z01.812 Encounter for preprocedural laboratory examination (principal); Z20.822 Contact with and (suspected) exposure to COVID-19
CPT/HCPCS: U0003; U0005

== ENCOUNTER 2022-12-05 13:59 | Outpatient (CLI) | payer OTHER | END 2022-12-05 14:00 | disposition home or self-care (01) | LOC: ULT 13:59 | PROVIDERS: ATTEND Nurse Practitioner Family | DX: M79.605 Pain in left leg (principal) ==

== ENCOUNTER 2023-04-30 15:17 | Outpatient (CLI) | payer OTHER | END 2023-04-30 15:18 | disposition home or self-care (01) | LOC: SCSRAD 15:17 | PROVIDERS: ATTEND Family Medicine | DX: R10.12 Left upper quadrant pain (principal) | CPT/HCPCS: 71046 ==

== ENCOUNTER 2023-04-30 16:13 | Emergency (ER) | payer OTHER ==
[~2023-04-30 16:13] MED LIST: Iopamidol-370 76% 500 ML MDV (1 ML CHARGE) ONE
[2023-04-30 17:28] LABS: #Neutrophils 7.4 thou/uL (1.40-6.50); %Basophils 0.3 % (0.0-1.0); %Eosinophils 0.3 % (0.0-10.0); %Lymphocytes 19.8 % (21.0-51.0); %Neutrophils 70.3 % (42.0-75.0); Hemoglobin 14.8 g/dL (12.0-16.0); Mean Corpuscular HGB CONC 33.6 g/dL (32.0-36.0); Mean Corpuscular Hemoglobin 31.2 pg (27.0-31.0); Mean Corpuscular Volume 92.8 fl (78.0-98.0); Mean Platelet Volume 9.6 fL (7.4-10.4); Platelet Count 305 10x3/uL (130-400); RBC Distribution Width 11.9 % (11.5-14.5); Red Blood Cell (RBC) Count 4.74 mill/uL (4.20-5.40); White Blood Cell (WBC) Count 10.6 10x3/uL (4.8-10.8)
[2023-04-30 17:51] LABS: ALT (SGPT) 20 U/L (8-55); AST (SGOT) 13 U/L (5-34); Albumin 4.5 g/dL (3.5-5.0); Alkaline Phosphatase 64 U/L (40-110); Anion Gap 14 mmol/L (10-20); BUN (Urea Nitrogen) 8 mg/dL (7.0-18.7); Bilirubin, Total 1.1 mg/dL (0.2-1.2); Calc. Creatinine Clearance 0 mL/min (70-130); Calcium 9.4 mg/dL (7.8-10.44); Carbon Dioxide 23 mmol/L (22-29); Chloride 104 mmol/L (98-107); Estimated GFR 111; Glucose 80 mg/dL (70-105); Potassium 3.9 mmol/L (3.5-5.1); Protein, Total 7.5 g/dL (6.0-8.3); Sodium 137 mmol/L (136-145)
[2023-04-30 17:55] LABS: Troponin I Less than 0.010 ng/mL (< 0.028)
[2023-04-30 18:57] LABS: BHCG - Serum Negative (NEGATIVE); Pregs Control Background? CLEAR/WHITE (CLR/WHITE); Pregs Control Bar Appear? YES (CONTROL BAR)
[2023-04-30] MEDS ORDERED: Famotidine 20 MG TAB ONE (19:23)
[2023-04-30] MEDS ORDERED: Ondansetron ODT 8 MG TAB ONE (19:23)
[2023-04-30] MEDS ORDERED: Mag-Al 1200 mg/1200 mg/30 ML UDCUP ONE (19:23)
[2023-04-30] MEDS ORDERED: Ketorolac Tromethamine 30 MG/ML VIAL ONE (19:53)
[2023-04-30] MEDS ORDERED: fentaNYL 50 mcg/mL 1 mL Vial ONE (21:51)
[2023-04-30] MEDS ORDERED: Diazepam 5 MG TAB ONE (23:47)
[2023-04-30] MEDS ORDERED: Diazepam 10 MG/2 ML SYRINGE ONE (23:49)
== END 2023-05-01 01:03 | disposition home or self-care (01) ==
LOC: ERS 16:13
DX: R07.9 Chest pain, unspecified (principal); K44.9 Diaphragmatic hernia without obstruction or gangrene; R06.02 Shortness of breath; F17.290 Nicotine dependence, other tobacco product, uncomplicated
CPT/HCPCS: 36415; 71045; 71275; 74177; 80053; 83690; 84484; 84703; 85025; 93005; 96372; 96374; 96375; J1885; J3010; J3360; Q0162; Q9967